=== PATIENT | male | born 1935 | race Caucasian/White ===

== ENCOUNTER 2018-04-26 05:32 | Emergency (ER) | payer BC, SELFPAY ==
[2018-04-26 05:53] VITALS: BP 145/65; PULSE 76; RESP 16; TEMP 37; O2SAT 93; BMI 23.7
--- NOTE | 2018-04-26 06:06 | DI.CT.S_ITS ---
PROCEDURE: CT ABDOMEN PELVIS W CON INDICATIONS: periumbilical pain and absence of passing stool TECHNIQUE: After the administration of intravenous contrast, 5 mm thick sections acquired from the diaphragm to the symphysis. 5 mm coronal and sagittal reformats were acquired. For radiation dose reduction, the following was used: automated exposure control, adjustment of mA and/or kV according to patient size. COMPARISON: None. FINDINGS: Image quality: Excellent. ABDOMEN: Lung bases: Patchy consolidation noted in the right lung base which could represent atelectasis or pneumonia. Heart is enlarged. Atherosclerotic ossifications in the visualized coronary vasculature. Solid organs: Liver is normal in size and enhancement. Gallbladder is within normal limits. Biliary system is non dilated. Pancreas enhances normally. Spleen is normal in size and enhancement. No adrenal nodules. There is a 3 mm stone in distal left ureter causing acae-de-izyvvama left-sided hydronephrosis. Multiple left peripelvic renal cysts are noted. There is a 7.7 cm exophytic left renal cyst. There is a 4.6 cm right renal cyst which contains a thick curvilinear calcifications (Bosniak 2F). Peritoneum and bowel: Small hiatal hernia noted. Bowel loops demonstrate normal wall thickness and caliber. Scattered colonic diverticuli without evidence of diverticulitis. No free fluid or air. Visualized appendix is normal. Nodes and vessels: No retroperitoneal or mesenteric adenopathy by size criteria. Aorta and inferior vena cava are normal in size. Scattered atherosclerotic calcifications involving the abdominal and pelvic vasculature. Miscellaneous: No ventral hernias. PELVIS: Genitourinary: Bladder wall thickness is normal. Miscellaneous: No inguinal hernias or adenopathy. Bones: No suspicious bony lesions. No vertebral body compression fractures. Spine degenerative disc disease and facet arthropathy. S-shaped scoliosis of the thoracolumbar spine noted. IMPRESSION: 1. 3 mm stone in the distal left ureter causing [id number] left-sided hydronephrosis. Left kidney is enlarged with slightly decreased contrast relative to the right kidney compatible with obstructive uropathy. 2. Multiple left-sided renal cysts. 3. 4.6 cm Bosniak 2F right renal cyst. Recommend CT scan (renal protocol) in 4-6 months. 4. Patchy consolidation in the right lung base compatible atelectasis versus pneumonia. Please correlate with clinical and laboratory data. 5. Colonic diverticulosis without evidence of diverticulitis. 6. Hiatal hernia. 7. Atherosclerosis including the coronary coronary vasculature. 8. Cardiomegaly. 9. No free fluid or air. 10. No dilated loops of bowel. Dictated by: Fatou Perez MD, PhD on 04/26/2018 at 7:59 Approved by: Fatou Perez MD, PhD on 04/26/2018 at 8:08
[2018-04-26 06:31] LABS: Add Manual Diff / Slide Review NO; Basophils Percent Auto 0.4 % (0-2); Eosinophils Percent Auto 0.3 % (2-4); Hematocrit 39.3 % (41-53); Hemoglobin 12.9 g/dL (13.5-17.5); Lymphocytes Percent Auto 8.2 % (25-40); Mean Corpuscular HGB Conc 32.7 % (30-36); Mean Corpuscular Hemoglobin 27.1 PG (26-34); Neutrophils Absolute Auto 8800 /uL (3000-5900); Neutrophils Percent Auto 78.1 % (50-75); Platelet Count 213 X10^3/uL (150-400); Red Blood Cell Count 4.74 X10^6/uL (4.5-5.9); Red Cell Distribution Width 15.5 % (11.6-14.8); White Blood Cell Count 11.3 X10^3/uL (4.5-11.0)
[2018-04-26 06:37] LABS: Bacteria Urine None Seen
[2018-04-26 06:38] LABS: Appearance Urine UA CLEAR; Bilirubin Urine UA NEGATIVE (NEGATIVE); Color Urine UA YELLOW; Glucose Urine UA NEGATIVE (Normal); Ketones Urine UA TRACE (NEGATIVE); Leukocyte Esterase Urine UA NEGATIVE (NEGATIVE); Nitrite Urine UA Negative (Negative); Occult Blood Urine UA 2+ (Negative); Protein Urine UA 1+ (Negative); Specific Gravity Urine UA 1.025 (1.000-1.035); Urobilinogen Urine UA 0.2 E.U./dL (0.2)
[2018-04-26 06:43] LABS: Alanine Aminotransferase 22 IU/L (21-72); Albumin 3.6 g/dL (3.5-5.0); Albumin Globulin Ratio 1.2 (1.0-2.8); Alkaline Phosphatase 88 U/L (38-126); Aspartate Aminotransferase 20 IU/L (17-59); BUN Creatinine Ratio 18.9 (6-22); Bilirubin Total 0.7 mg/dL (0.2-1.3); Blood Urea Nitrogen 36 mg/dL (9-20); Calcium 9.2 mg/dL (8.4-10.2); Carbon Dioxide 28 mmol/L (22-32); Chloride 104 mmol/L (98-107); Globulin 2.9 g/dL (1.7-4.1); Glucose 126 mg/dL (80-110); HEMOLYSIS < 15 (0-50); Lactate (Lactic Acid) 0.9 mmol/L (0.7-2.1); Lipase 43 U/L (23-300); Potassium 4.3 mmol/L (3.4-5.1); Sodium 143 mmol/L (137-145); Total Protein 6.5 g/dL (6.3-8.2)
[2018-04-26 06:45] LABS: Culture Indicated Urine Cult Not Indicated; RBC Urine 1-5/HPF (0-5/HPF); WBC Urine 0-1/HPF (0-5/HPF)
--- NOTE | 2018-04-26 07:00 | ED_ITS ---
HPI - Abdominal Pain General Chief Complaint: Abdominal Pain Stated Complaint: UNABLE TO DEFECATE AND LEFT SIDE STOMACH PAIN History of Present Illness HPI narrative: HPI 82 y/o male presents for evaluation of ~5 days of poorly characterized left sided abdominal discomfort and minimal passage of stool with scant ongoing passage of flatus. Notes mildly decreased PO intake, continues to pass urine without discomfort or increase frequency. No similar prior symptoms. Denies weight loss, night sweats, fevers, chills. Denies chest pain, shortness breath, or testicular pain. No new medications or dose adjustments. M/S/F/SocHx notable for: BPH; remainder reviewed with patient and in chart. ROS: Negative constitutional, eye, cardiovascular, pulmonary, GI, , MSK, skin , neurologic, psychiatric, endocrine unless noted in the HPI. Exam Gen: Pleasant, non-toxic appearing, resting comfortably. HEENT: NC, AT, PEERL, EOMI. Resp: Clear to auscultation bilaterally, normal work of breathing, no accessory muscle usage. Card: Regular rate and rhythm with no murmurs, rubs, or gallops, extremities warm and well perfused. GI: mild left-sided, upper greater than lower abdominal tenderness palpation, remainder of abdomen nontender to palpation, no rebound, no guarding. : No suprapubic tenderness to palpation. MSK: No visible deformities, strength and tone without visually appreciable deficit. Skin: Normal color with no visible lesions. Neuro: AO x 3, no facial asymmetry, vision and hearing WNL. Psych: Mood and affect appropriate. Labs / Imaging: CT Abd/Pelvis: pending. WBC 11.3, HB 12.9, NA 143, K 4.3, creatinine 1.90, GFR 34, total bilirubin 0.7, AST 20, ALT 22, ALP 88, lipase 43, lactate 0.9. UA - 2+ occult blood, negative nitrate, negative leukocyte esterase, no bacteria. MDM Previous chart, nursing note, labs, imaging, and vitals reviewed. A: 82 y/o male presents for evaluation of ~5 days of poorly characterized left sided abdominal discomfort and minimal passage of stool with scant ongoing passage of flatus. DDx & Evaluation: patient with a broad differential, including but not limited to, dehydration, electrolyte abnormalities, constipation, constipation, ischemia , diverticulitis, malignancy. UA without evidence of UTI, CBC, CMP, lipase, lactic notable for renal insufficiency of uncertain duration. Patient care transferred to daytime provider, Dr Thrasher, with remainder of evaluation pending. Impression: Abdominal pain, renal insufficiency, constipation. (please reference below for remainder of encounter information) Related Data Home Medications Medication Instructions Recorded Confirmed acetaminophen [Tylenol Extra 500 mg PO Q4H PRN 04/26/18 04/26/18 Strength] diphenhydramine HCl [Benadryl] 25 mg PO Q4H PRN 04/26/18 04/26/18 dutasteride [Avodart] 0.5 mg PO DAILY 04/26/18 04/26/18 levothyroxine [Synthroid] 125 mcg PO DAILY 04/26/18 04/26/18 magnesium citrate 04/26/18 melatonin 3 mg PO BEDTIME PRN 04/26/18 04/26/18 saw palmetto 1,000 mg PO DAILY 04/26/18 04/26/18 silodosin [Rapaflo] 8 mg PO DAILY 04/26/18 04/26/18 Allergies Allergy/AdvReac Type Severity Reaction Status Date / Time No Known Drug Allergies Allergy Verified 04/26/18 06:00 [facility] Social History Smoking Status: Never smoker Exam Initial Vital Signs Initial Vital Signs: Vital Signs Temperature 98.6 F 04/26/18 05:53 Pulse Rate 76 04/26/18 05:53 Respiratory Rate 16 04/26/18 05:53 Blood Pressure 145/65 H 04/26/18 05:53 Pulse Oximetry 93 04/26/18 05:53 Course Orders Ordered: ED Orders 04/26/18 06:06 CT abdomen pelvis w con Stat 04/26/18 06:18 Complete Blood Count AUTO DIFF Stat Comprehensive Metabolic Panel Stat Lactate (Lactic Acid) Stat Lipase Stat 04/26/18 06:30 Urinalysis and Microscopic Stat Sodium Chloride (Normal Saline 0.9%) 1,000 mls @ 1,000 mls/hr IV BOLUS ONE Stop: 04/26/18 07:55 Vital Signs - 8 hr 04/26/18 05:53 Temperature 98.6 F Pulse Rate 76 Respiratory Rate 16 Blood Pressure 145/65 H Pulse Oximetry 93 MDM - Abdominal Pain Lab Data Result diagrams: 04/26/18 06:18 04/26/18 06:18 Lab Results 04/26/18 04/26/18 04/26/18 Range/Units 06:18 06:18 06:18 WBC 11.3 H (4.5-11.0) X10^3/uL RBC 4.74 (4.5-5.9) X10^6/uL Hgb 12.9 L (13.5-17.5) g/dL Hct 39.3 L (41-53) % MCV 83.0 (80-100) fL MCH 27.1 (26-34) PG MCHC 32.7 (30-36) % RDW 15.5 H (11.6-14.8) % Plt Count 213 (150-400) X10^3/uL Neut % (Auto) 78.1 H (50-75) % Lymph % (Auto) 8.2 L (25-40) % [place]eadle % (Auto) 13.0 (3-14) % Eos % (Auto) 0.3 L (2-4) % Baso % (Auto) 0.4 (0-2) % Neut # (Auto) 8800 H (8679-2618) /uL Sodium 143 (137-145) mmol/L Potassium 4.3 (3.4-5.1) mmol/L Chloride 104 (98-107) mmol/L Carbon Dioxide 28 (22-32) mmol/L BUN 36 H (9-20) mg/dL Creatinine 1.90 H (0.66-1.25) mg/dL Estimated GFR 34.0 L (>60) mL/min BUN/Creatinine Ratio 18.9 (6-22) Glucose 126 H (80-110) mg/dL Lactate 0.9 (0.7-2.1) mmol/L Calcium 9.2 (8.4-10.2) mg/dL Total Bilirubin 0.7 (0.2-1.3) mg/dL AST 20 (17-59) IU/L ALT 22 (21-72) IU/L Alkaline Phosphatase 88 (38-126) U/L Total Protein 6.5 (6.3-8.2) g/dL Albumin 3.6 (3.5-5.0) g/dL Globulin 2.9 (1.7-4.1) g/dL Albumin/Globulin Ratio 1.2 (1.0-2.8) Lipase 43 (23-300) U/L Urine Color Urine Appearance Urine pH (4.5-8.0) Ur Specific [place] (1.000-1.035) Urine Protein (Negative) Urine Glucose (UA) (Normal) g/dL Urine Ketones (NEGATIVE) Urine Occult Blood (Negative) Urine Nitrate (Negative) Urine Bilirubin (NEGATIVE) Urine Urobilinogen (0.2) E.U./dL Ur Leukocyte Esterase (NEGATIVE) Urine RBC (0-5/HPF) Urine WBC (0-5/HPF) Urine Bacteria (None) Ur Culture Indicated? Micro UA Comment 04/26/18 Range/Units 06:30 WBC (4.5-11.0) X10^3/uL RBC (4.5-5.9) X10^6/uL Hgb (13.5-17.5) g/dL Hct (41-53) % MCV (80-100) fL MCH (26-34) PG MCHC (30-36) % RDW (11.6-14.8) % Plt Count (150-400) X10^3/uL Neut % (Auto) (50-75) % Lymph % (Auto) (25-40) % [place]eadle % (Auto) (3-14) % Eos % (Auto) (2-4) % Baso % (Auto) (0-2) % Neut # (Auto) (6150-8356) /uL Sodium (137-145) mmol/L Potassium (3.4-5.1) mmol/L Chloride (98-107) mmol/L Carbon Dioxide (22-32) mmol/L BUN (9-20) mg/dL Creatinine (0.66-1.25) mg/dL Estimated GFR (>60) mL/min BUN/Creatinine Ratio (6-22) Glucose (80-110) mg/dL Lactate (0.7-2.1) mmol/L Calcium (8.4-10.2) mg/dL Total Bilirubin (0.2-1.3) mg/dL AST (17-59) IU/L ALT (21-72) IU/L Alkaline Phosphatase (38-126) U/L Total Protein (6.3-8.2) g/dL Albumin (3.5-5.0) g/dL Globulin (1.7-4.1) g/dL Albumin/Globulin Ratio (1.0-2.8) Lipase (23-300) U/L Urine Color Yellow Urine Appearance Clear Urine pH 5.0 (4.5-8.0) Ur Specific [place] 1.025 (1.000-1.035) Urine Protein 1+ H (Negative) Urine Glucose (UA) Negative (Normal) g/dL Urine Ketones Trace H (NEGATIVE) Urine Occult Blood 2+ H (Negative) Urine Nitrate Negative (Negative) Urine Bilirubin Negative (NEGATIVE) Urine Urobilinogen 0.2 (0.2) E.U./dL Ur Leukocyte Esterase Negative (NEGATIVE) Urine RBC 1-5/hpf (0-5/HPF) Urine WBC 0-1/hpf (0-5/HPF) Urine Bacteria None seen (None) Ur Culture Indicated? Cult not indicated Micro UA Comment Not Reportable Discharge Plan Departure Prescriptions: No Action melatonin 3 mg Tablet 3 mg PO BEDTIME PRN (Reason: Abdominal Discomfort) RF: 0 acetaminophen [Tylenol Extra Strength] 500 mg Tablet 500 mg PO Q4H PRN (Reason: Pain, Moderate) RF: 0 diphenhydramine HCl [Benadryl] 25 mg Capsule 25 mg PO Q4H PRN (Reason: Abdominal Pain) RF: 0 levothyroxine [Synthroid] 125 mcg Tablet 125 mcg PO DAILY RF: 0 saw palmetto 500 mg Capsule 1,000 mg PO DAILY RF: 0 dutasteride [Avodart] 0.5 mg Capsule 0.5 mg PO DAILY RF: 0 silodosin [Rapaflo] 8 mg Capsule 8 mg PO DAILY RF: 0 magnesium citrate 125 mg Capsule RF: 0
[2018-04-26] MEDS: SODIUM CHLORIDE 0.9% 1,000 ML 1000 ML IV (07:16)
[2018-04-26 07:32] VITALS: BP 125/49; PULSE 61; RESP 16; O2SAT 96
[2018-04-26 08:49] VITALS: BP 132/62; PULSE 68; RESP 18; O2SAT 98
== END 2018-04-26 08:50 | disposition home or self-care (01) ==
PROVIDERS: Emergency Medicine; Emergency Provider Emergency Medicine
DX: R10.9 Unspecified abdominal pain (principal); N28.9 Disorder of kidney and ureter, unspecified; K59.00 Constipation, unspecified
CPT/HCPCS: 36591; 74177; 80053; 81001; 83605; 83690; 85025; 96360; 99283; 99285; Q9967